=== PATIENT | female | born 1990 | race African-American/Black ===

== ENCOUNTER → 2017-05-10 | Emergency (ER) | payer OTHER ==
[~2017-05-10] VITALS: Ht 175.3 cm; Wt 90.7 kg
[~2017-05-10] MED LIST: MOTRIN800 MG PO; ORPH100T PO; PERCOCET 5/321 UDTAB PO
== END | disposition home or self-care (01) ==
LOC: ER 17:39
DX: B34.9 Viral infection, unspecified (principal); J11.1 Influenza due to unidentified influenza virus with other respiratory manifestations

== ENCOUNTER 2017-08-14 08:16 | Emergency (ER) | payer OTHER ==
[~2017-08-14] VITALS: Ht 175.3 cm; Wt 95.3 kg
== END 2017-08-14 10:27 | disposition home or self-care (01) ==
LOC: ER 08:16
DX: K52.9 Noninfective gastroenteritis and colitis, unspecified (principal)

== ENCOUNTER 2018-10-11 16:29 | Emergency (ER) | payer OTHER ==
[~2018-10-11] VITALS: Ht 175.3 cm; Wt 110.2 kg
== END 2018-10-11 21:22 | disposition home or self-care (01) ==
LOC: ER 16:29
DX: M94.0 Chondrocostal junction syndrome [Tietze] (principal)

== ENCOUNTER 2021-06-01 17:03 | Emergency (ER) | payer OTHER ==
[~2021-06-01] VITALS: Ht 175.3 cm; Wt 108.9 kg
[2021-06-01] MEDS ORDERED: TUSNEL LIQUID178 ML PO (19:09)
[2021-06-01] MEDS ORDERED: AMOX-CLAV 875-1 EACH PO (19:09)
== END 2021-06-01 19:11 | disposition home or self-care (01) ==
LOC: ER 17:03
DX: J06.9 Acute upper respiratory infection, unspecified (principal)

== ENCOUNTER 2021-07-27 07:54 | Emergency (ER) | payer OTHER ==
[~2021-07-27] VITALS: Ht 175.3 cm; Wt 65.8 kg
[~2021-07-27 07:54] MED LIST changes: +AMOX-CLAV 875-1 EACH PO; +TUSNEL LIQUID178 ML PO
== END 2021-07-27 09:54 | disposition home or self-care (01) ==
LOC: ER 07:54
DX: U07.1 COVID-19 (principal)

== ENCOUNTER 2021-12-10 20:00 | Emergency (ER) | payer OTHER ==
[~2021-12-10] VITALS: Ht 175.3 cm; Wt 112.9 kg
[2021-12-10] MEDS ORDERED: ORPHENADRINE C100 MG PO (23:00)
[2021-12-10] MEDS ORDERED: DICLOFENAC POTA50 MG PO (23:00)
== END 2021-12-11 00:13 ==
LOC: ER 20:00
DX: M62.830 Muscle spasm of back (principal)

== ENCOUNTER 2024-03-10 19:23 | Emergency (ER) | payer OTHER ==
[~2024-03-10] VITALS: Ht 175.3 cm; Wt 96.6 kg
[~2024-03-10 19:23] MED LIST changes: +CLEOCIN HCL300 MG PO; +DICLOFENAC POTA50 MG PO; +KETO10TA2 PO; +ORPHENADRINE C100 MG PO
[2024-03-10 21:42] LABS: HEMATOCRIT 33.9 % (36.0-45.00); MEAN CORPUSCULAR HEMOGLOBIN 24.5 pg (27.00-32.0); MEAN CORPUSCULAR HGB CONC 32.3 g/dl (32.0-36.0); PLATELET COUNT 300 K/uL (150-450); RED BLOOD COUNT 4.47 M/uL (4.00-6.00); RED CELL DISTRIBUTION WIDTH 16.2 % (11.5-14.5)
== END 2024-03-10 22:42 | disposition home or self-care (01) ==
LOC: ER 19:23
PROVIDERS: General Practice
DX: B34.9 Viral infection, unspecified (principal)

== ENCOUNTER 2024-04-28 06:14 | Emergency (ER) | payer OTHER ==
[~2024-04-28] VITALS: Ht 175.3 cm; Wt 68.0 kg
[2024-04-28] MEDS ORDERED: KETOROLAC TROMETHAMINE 30 MG VIAL IM STA (08:38)
[2024-04-28] MEDS ORDERED: KETOROLAC TROMETHAMINE 30 MG VIAL ONE (08:48)
== END 2024-04-28 09:55 | disposition home or self-care (01) ==
LOC: ER 06:17
DX: T14.90XA Injury, unspecified, initial encounter (principal); V49.9XXA Car occupant (driver) (passenger) injured in unspecified traffic accident, initial encounter; Y93.89 Activity, other specified; Y92.413 State road as the place of occurrence of the external cause; Y99.9 Unspecified external cause status; M54.89 Other dorsalgia

== ENCOUNTER 2024-06-21 07:02 | Emergency (ER) | payer OTHER ==
[~2024-06-21] VITALS: Ht 175.3 cm; Wt 97.5 kg
[2024-06-21 07:18] VITALS: BP 117/68; O2SAT 99
[2024-06-21] MEDS ORDERED: ONDANSETRON HCL 2 MG/ML VIAL IV STA (08:57)
[2024-06-21] MEDS ORDERED: FAMOTIDINE/PF 20 MG in 0.9 % SODIUM CHLORIDE 8 ML IV PUSH STA (08:58)
[2024-06-21] MEDS ORDERED: LACTOBACILLUS ACIDOPHILUS 1 CAP CAP PO ONE ×3 (09:00→09:13)
[2024-06-21] MEDS ORDERED: ONDANSETRON HCL 2 MG/ML VIAL ONE (09:04)
[2024-06-21] MEDS ORDERED: FAMOTIDINE/PF 20 MG/2 ML VIAL ONE (09:05)
== END 2024-06-21 10:50 | disposition home or self-care (01) ==
LOC: ER 07:05
DX: S93.492A Sprain of other ligament of left ankle, initial encounter (principal); K52.89 Other specified noninfective gastroenteritis and colitis